=== PATIENT | female | born 1955 | race Caucasian/White ===

== ENCOUNTER → 2017-01-12 | Outpatient (CLI) | payer BC ==
[2013-03-31 16:45] VITALS: BP 164/95
[2017-01-12 08:19] LABS: ALBUMIN 3.8 g/dL (3.5-5.0); BUN/CREATININE RATIO 27.5 (6.0-26.0); POTASSIUM 3.7 mmol/L (3.6-5.0); TOTAL BILIRUBIN 0.5 mg/dL (0.2-1.3); TOTAL PROTEIN 6.7 g/dL (6.3-8.2)
[2017-01-12 08:22] LABS: HEMATOCRIT 42.6 % (37.0-47.0); HEMOGLOBIN 13.8 g/dL (12.5-16.0); MEAN CELL VOLUME 87 fl (78-100); MEAN CORPUSCULAR HEMOGLOBIN 28 pg (27-31); MEAN CORPUSCULAR HGB CONC 32 g/dL (33-37); MEAN PLATELET VOLUME 10.8 fl (7.4-10.4); PLATELET COUNT 287 K/mm3 (130-400); RED BLOOD COUNT 4.91 M/mm3 (4.10-5.30); RED CELL DISTRIBUTION WIDTH 13.7 % (11.5-14.5); WHITE BLOOD COUNT 8.5 K/mm3 (4.8-10.8)
[2017-01-12 08:46] LABS: LYMPHOCYTE 26 % (20-51); MONOCYTE 8 % (3-10); NEUTROPHILS 54 % (42-75)
== END ==
LOC: LAB 07:36
PROVIDERS: Nurse Practitioner Family
DX: R73.03 Prediabetes (principal); E78.2 Mixed hyperlipidemia; I10 Essential (primary) hypertension

== ENCOUNTER → 2017-03-06 | Outpatient (CLI) | payer BC ==
[2013-03-31 16:45] VITALS: BP 164/95
== END ==
LOC: MAMMO 08:30 → RAD 08:30 → MAMMO 08:37
DX: Z12.31 Encounter for screening mammogram for malignant neoplasm of breast (principal)

== ENCOUNTER → 2018-04-02 | Outpatient (CLI) | payer BC ==
[2013-03-31 16:45] VITALS: BP 164/95
== END ==
LOC: MAMMO 09:55
DX: Z12.31 Encounter for screening mammogram for malignant neoplasm of breast (principal); N63.20 Unspecified lump in the left breast, unspecified quadrant

== ENCOUNTER → 2018-05-23 | Outpatient (CLI) | payer BC ==
[2013-03-31 16:45] VITALS: BP 164/95
== END ==
LOC: MAMMO 12:00
DX: N60.02 Solitary cyst of left breast (principal)

== ENCOUNTER → 2019-07-16 | Outpatient (CLI) | payer BC ==
[2013-03-31 16:45] VITALS: BP 164/95
== END ==
LOC: MAMMO 05-15 08:30
DX: Z12.31 Encounter for screening mammogram for malignant neoplasm of breast (principal)

== ENCOUNTER → 2020-04-16 | Outpatient (CLI) | payer BC ==
[2013-03-31 16:45] VITALS: BP 164/95
== END ==
LOC: LAB 11:21
DX: N39.0 Urinary tract infection, site not specified (principal)

== ENCOUNTER → 2020-07-29 | Outpatient (CLI) | payer BC ==
[2013-03-31 16:45] VITALS: BP 164/95
== END ==
LOC: MAMMO 08:52
DX: Z12.31 Encounter for screening mammogram for malignant neoplasm of breast (principal); N64.89 Other specified disorders of breast; R92.8 Other abnormal and inconclusive findings on diagnostic imaging of breast

== ENCOUNTER → 2020-08-09 | Outpatient (CLI) | payer BC ==
[2020-08-09 14:31] LABS: BASO # 0.03 (0.02-0.10); EOS # 0.72 (0.04-0.40); EOS % 7.1 % (1.0-5.0); HEMATOCRIT 44.3 % (37.0-47.0); HEMOGLOBIN 14.5 g/dL (12.5-16.0); LYMPH# 2.79 (1.50-4.00); MEAN CELL VOLUME 85 fl (78-100); MEAN CORPUSCULAR HEMOGLOBIN 28 pg (27-31); MEAN CORPUSCULAR HGB CONC 33 g/dL (33-37); MEAN PLATELET VOLUME 10.3 fl (7.4-10.4); MONO # 0.72 (0.20-0.80); NEU # 5.93 (1.40-6.50); PLATELET COUNT 349 K/mm3 (130-400); RED CELL DISTRIBUTION WIDTH 13.4 % (11.5-14.5); WHITE BLOOD COUNT 10.2 K/mm3 (4.8-10.8)
[2020-08-09 14:41] LABS: ALBUMIN 4.2 g/dL (3.4-4.8); POTASSIUM 3.9 mmol/L (3.5-5.1)
[2020-08-09 14:42] LABS: CALCIUM 9.6 mg/dL (8.3-10.5)
[2020-08-09 14:43] LABS: TOTAL PROTEIN 7.7 g/dL (6.2-8.1)
[2020-08-09 14:45] LABS: TOTAL BILIRUBIN 0.4 mg/dL (0.2-1.2)
[2020-08-09 14:47] LABS: URINE APPEARANCE HAZY; URINE BILIRUBIN NEGATIVE (NEGATIVE); URINE BLOOD 50 ery/uL (NEGATIVE); URINE COLOR YELLOW; URINE GLUCOSE NEGATIVE (NEGATIVE); URINE KETONE NEGATIVE (NEGATIVE); URINE LEUKOCYTE ESTERASE 1+ (NEGATIVE); URINE MUCUS PRESENT (NOT PRESENT); URINE NITRATE NEGATIVE (NEGATIVE); URINE PROTEIN(semi-quant) NEGATIVE (NEGATIVE); URINE UROBILINOGEN NORMAL (NORMAL)
== END ==
LOC: LAB 14:06
PROVIDERS: Family Medicine
DX: Z00.00 Encounter for general adult medical examination without abnormal findings (principal); M77.32 Calcaneal spur, left foot; M77.31 Calcaneal spur, right foot; R73.03 Prediabetes; E78.5 Hyperlipidemia, unspecified; N39.41 Urge incontinence

== ENCOUNTER → 2020-08-09 | Outpatient (CLI) | payer BC ==
[2013-03-31 16:45] VITALS: BP 164/95
== END ==
LOC: MAMMO 06:57
DX: N63.21 Unspecified lump in the left breast, upper outer quadrant (principal)

== ENCOUNTER → 2020-08-12 | Outpatient (CLI) | payer BC | LOC: RAD 12:31 | DX: N63.20 Unspecified lump in the left breast, unspecified quadrant (principal) | CPT/HCPCS: 15989; 15990; A4648 ==

== ENCOUNTER → 2021-02-22 | Outpatient (CLI) | payer BC | LOC: RAD 11:11 | DX: M79.642 Pain in left hand (principal); M79.672 Pain in left foot ==

== ENCOUNTER → 2021-08-15 | Outpatient (CLI) | payer BC | LOC: MAMMO 13:00 | DX: Z12.31 Encounter for screening mammogram for malignant neoplasm of breast (principal); Z51.0 Encounter for antineoplastic radiation therapy; Z85.3 Personal history of malignant neoplasm of breast ==

== ENCOUNTER → 2022-04-10 | Day surgery (SDC) | payer MEDICARE, BC | LOC: MSO 08:15 | DX: K21.9 Gastro-esophageal reflux disease without esophagitis (principal); K44.9 Diaphragmatic hernia without obstruction or gangrene | CPT/HCPCS: 00731; J2704; J7120 ==

== ENCOUNTER → 2023-05-14 | Outpatient (CLI) | payer MEDICARE, BC ==
[2023-05-14 15:15] LABS: BASO # 0.03 K/mm3 (0.02-0.10); EOS # 0.43 K/mm3 (0.04-0.40); EOS % 5.3 % (1.0-5.0); HEMATOCRIT 40.4 % (37.0-47.0); HEMOGLOBIN 12.8 g/dL (12.5-16.0); MEAN CELL VOLUME 87 fl (78-100); MEAN CORPUSCULAR HEMOGLOBIN 28 pg (27-31); MEAN CORPUSCULAR HGB CONC 32 g/dL (33-37); MEAN PLATELET VOLUME 10.7 fl (7.4-10.4); MONO # 0.53 K/mm3 (0.20-0.80); NEU # 4.79 K/mm3 (1.40-6.50); PLATELET COUNT 281 K/mm3 (130-400); RED BLOOD COUNT 4.65 M/mm3 (4.10-5.30); RED CELL DISTRIBUTION WIDTH 13.3 % (11.5-14.5); WHITE BLOOD COUNT 8.1 K/mm3 (4.8-10.8)
[2023-05-14 15:21] LABS: CALCIUM 9.5 mg/dL (8.3-10.5)
[2023-05-14 15:23] LABS: TOTAL PROTEIN 6.9 g/dL (6.2-8.1)
[2023-05-14 15:25] LABS: TOTAL BILIRUBIN 0.3 mg/dL (0.2-1.2)
== END ==
LOC: LAB 14:37
PROVIDERS: Family Medicine
DX: Z12.11 Encounter for screening for malignant neoplasm of colon (principal); E78.5 Hyperlipidemia, unspecified; I10 Essential (primary) hypertension; E55.9 Vitamin D deficiency, unspecified; R73.03 Prediabetes